=== PATIENT | male | born 1985 | race Caucasian/White ===

== ENCOUNTER 2017-01-04 00:05 | Emergency (ER) | payer OTHER ==
[2017-01-04] MEDS ORDERED: Sulfameth/Trimethoprim DS 800-160mg TAB ONE (00:49)
== END 2017-01-04 01:00 | disposition home or self-care (01) ==
LOC: BURERS 00:05
DX: K61.0 Anal abscess (principal)
CPT/HCPCS: 46050

== ENCOUNTER 2017-01-05 15:33 | Emergency (ER) | payer OTHER | END 2017-01-05 16:25 | disposition home or self-care (01) | LOC: BURERS 15:33 | DX: Z48.01 Encounter for change or removal of surgical wound dressing (principal); Z79.899 Other long term (current) drug therapy | CPT/HCPCS: 99282 ==